=== PATIENT | female | born 1930 | race Caucasian/White ===

== ENCOUNTER 2016-10-06 10:41 | Emergency (ER) | payer MEDICARE, OTHER ==
[2016-10-06 10:44] VITALS: BP 203/91; PULSE 95; RESP 22; TEMP 98.4; O2SAT 100
--- NOTE | 2016-10-06 11:15 | PD ---
Physical Exam Time Seen by Provider: 11:14 Narrative 86 y/o female here with lower abdominal pain abdominal pain which started a few days ago. Hx of diverticulosis/diverticulitis, this feels similar. Loose stools, denies fevers/chills, nausea/vomiting. Vital signs reviewed. Seen at triage desk. Awaiting bed placement. Data Data Last Documented VS Vital Signs Date Time Temp Pulse Resp B/P Pulse Ox O2 Delivery O2 Flow Rate FiO2 10/06/16 10:44 98.4 95 22 203/91 100 Room Air [facility] Medical Record Reviewed: Yes Supervised Visit with AUUGSTINE: No Alessandro Hawkins Oct 06, 2016 11:15
[2016-10-06 11:42] LABS: AUTOMATED NEUTROPHIL # 5.6 TH/MM3 (1.8-7.7); BASOPHIL % 0.4 % (0.0-2.0); EOSINOPHIL % 0.1 % (0.0-4.0); HEMATOCRIT 42.2 % (35.0-46.0); HEMO FLAGS DIFF FINAL; LYMPH % 17.3 % (9.0-44.0); LYMPHOCYTE # 1.4 TH/MM3 (1.0-4.8); MEAN CELL VOLUME 83.9 FL (80.0-100.0); MEAN CORPUSCULAR HEMOGLOBIN 28.7 PG (27.0-34.0); MEAN CORPUSCULAR HGB CONC 34.2 % (32.0-36.0); MONO % 11.2 % (0.0-8.0); PLATELET COUNT 122 TH/MM3 (150-450); RED BLOOD COUNT 5.03 MIL/MM3 (4.00-5.30); RED CELL DISTRIBUTION WIDTH 14.6 % (11.6-17.2); WHITE BLOOD COUNT 7.8 TH/MM3 (4.0-11.0)
[2016-10-06 11:47] LABS: BACTERIA, URINE MANY /hpf; BLOOD, URINE NEG (NEG); COMMENT (UR) CULTURE INDICATED; CULTURE IF INDICATED CULTURE INDICATED; GLUCOSE,URINE NEG (NEG); KETONE, URINE NEG (NEG); NITRITE,URINE NEG (NEG); PH, URINE 5.5 (5.0-8.5); RENAL EPITHELIAL CELLS 1 /hpf; SQUAMOUS EPITHELIAL CELL URINE <1 /hpf (0-5); URINE COLOR YELLOW (YELLW/STRAW)
[2016-10-06 12:04] LABS: ALT (GPT) 20 U/L (10-53); ANION GAP 10 MEQ/L (5-15); AST (GOT) 10 U/L (15-37); BICARBONATE 25.4 MEQ/L (21.0-32.0); BLOOD UREA NITROGEN 16 MG/DL (7-18); CHLORIDE 108 MEQ/L (98-107); GLOMERULAR FILTRATION RATE 57 ML/MIN (>89); POTASSIUM 3.5 MEQ/L (3.5-5.1); SODIUM (NA) 143 MEQ/L (136-145)
[2016-10-06 12:06] LABS: ALKALINE PHOSPHATASE 64 U/L (45-117); TOTAL BILIRUBIN ADULT 0.4 MG/DL (0.2-1.0)
[2016-10-06 13:02] VITALS: BP 226/103; PULSE 89; O2SAT 95
--- NOTE | 2016-10-06 13:05 | PD ---
HPI Chief Complaint: GI Complaint Time Seen by Provider: 12:56 Travel History International Travel<30 days: No Contact w/Intl Traveler<30days: No History of Present Illness HPI 86-year-old female complains of left low quadrant abdominal pain. Patient states the pain started 3 days ago. Patient states the pain is sharp pain constant pain localized to left lower quadrant of the abdomen. Patient denies any pain radiation. Patient states that she has intermittent loose stool since then. Patient denies any nausea vomiting. Patient denies any fever chills. Patient has history of diverticulitis in the past. Patient states that was at times the pain came and resolved without any intervention. Patient denies any dysuria or frequency. Patient denies any vaginal discharge or bleeding. Patient status post hysterectomy in the past. On a scale of 1-10 the pain is a 2. PFSH Past Medical History High Cholesterol: Yes Gastrointestinal Disorders: Yes (diverticulitis) Hypertension: Yes Tetanus Vaccination: Unknown Influenza Vaccination: No ?: Not Past Surgical History Eye Surgery: Yes (right eye filter placed) Hysterectomy: Yes (complete) Social History Alcohol Use: No Tobacco Use: No Substance Use: No Allergies-Medications (Allergen,Severity, Reaction): Coded Allergies: No Known Allergies (Verified , 10/06/16) Reported Meds & Prescriptions Reported Meds & Active Scripts Active Ultram (Tramadol HCl) 50 Mg Tab 50 Mg PO Q6H PRN Flagyl (Metronidazole) 500 Mg Tab 500 Mg PO TID Cipro (Ciprofloxacin HCl) 500 Mg Tab 500 Mg PO BID Review of Systems General / Constitutional: No: Fever Eyes: No: Visual changes HENT: No: Headaches Cardiovascular: No: Chest Pain or Discomfort Respiratory: No: Shortness of Breath Gastrointestinal: Positive: Abdominal Pain Genitourinary: No: Dysuria Musculoskeletal: No: Pain Skin: No Rash Neurologic: No: Weakness Psychiatric: No: Depression Endocrine: No: Polydipsia Hematologic/Lymphatic: No: Easy Bruising Physical Exam Narrative GENERAL: Well-nourished, well-developed patient. SKIN: Focused skin assessment warm/dry. HEAD: Normocephalic. EYES: No scleral icterus. No injection or drainage. NECK: Supple, trachea midline. No JVD or lymphadenopathy. CARDIOVASCULAR: Regular rate and rhythm without murmurs, gallops, or rubs. RESPIRATORY: Breath sounds equal bilaterally. No accessory muscle use. GASTROINTESTINAL: Abdomen soft, nondistended. Patient has moderate tenderness on palpation the left low quadrant of the abdomen. No rebound tenderness. No mass. MUSCULOSKELETAL: No cyanosis, or edema. BACK: Nontender without obvious deformity. No CVA tenderness. Neurologic exam normal. Data Data Last Documented VS Vital Signs Date Time Temp Pulse Resp B/P Pulse Ox O2 Delivery O2 Flow Rate FiO2 10/06/16 13:02 89 226/103 95 Room Air 10/06/16 10:44 98.4 22 Orders Complete Blood Count With Diff (10/06/16 11:15) Comprehensive Metabolic Panel (10/06/16 11:15) Lipase (10/06/16 11:15) Urinalysis - C+S If Indicated (10/06/16 11:15) Urine Culture (10/06/16 11:30) Ct Abd/Pel W Iv Contrast(Rout) (10/06/16 13:02) Levofloxacin 750 Mg Premix Inj (Levaquin (10/06/16 13:15) Iohexol 350 Inj (Omnipaque 350 Inj) (10/06/16 13:32) Labs Laboratory Tests Test 10/06/16 10/06/16 11:25 11:30 White Blood Count 7.8 TH/MM3 Red Blood Count 5.03 MIL/MM3 Hemoglobin 14.5 GM/DL Hematocrit 42.2 % Mean Corpuscular Volume 83.9 FL Mean Corpuscular Hemoglobin 28.7 PG Mean Corpuscular Hemoglobin 34.2 % Concent Red Cell Distribution Width 14.6 % Platelet Count 122 TH/MM3 Mean Platelet Volume 10.1 FL Neutrophils (%) (Auto) 71.0 % Lymphocytes (%) (Auto) 17.3 % Monocytes (%) (Auto) 11.2 % Eosinophils (%) (Auto) 0.1 % Basophils (%) (Auto) 0.4 % Neutrophils # (Auto) 5.6 TH/MM3 Lymphocytes # (Auto) 1.4 TH/MM3 Monocytes # (Auto) 0.9 TH/MM3 Eosinophils # (Auto) 0.0 TH/MM3 Basophils # (Auto) 0.0 TH/MM3 CBC Comment DIFF FINAL Differential Comment Sodium Level 143 MEQ/L Potassium Level 3.5 MEQ/L Chloride Level 108 MEQ/L Carbon Dioxide Level 25.4 MEQ/L Anion Gap 10 MEQ/L Blood Urea Nitrogen 16 MG/DL Creatinine 0.93 MG/DL Estimat Glomerular Filtration 57 ML/MIN Rate Random Glucose 161 MG/DL Calcium Level 8.9 MG/DL Total Bilirubin 0.4 MG/DL Aspartate Amino Transf 10 U/L (AST/SGOT) Alanine Aminotransferase 20 U/L (ALT/SGPT) Alkaline Phosphatase 64 U/L Total Protein 6.9 GM/DL Albumin 3.6 GM/DL Lipase 118 U/L Urine Color YELLOW Urine Turbidity HAZY Urine pH 5.5 Urine Specific [place] 1.020 Urine Protein TRACE mg/dL Urine Glucose (UA) NEG mg/dL Urine Ketones NEG mg/dL Urine Occult Blood NEG Urine Nitrite NEG Urine Bilirubin NEG Urine Urobilinogen LESS THAN 2.0 MG/DL Urine Leukocyte Esterase LARGE Urine RBC 4 /hpf Urine WBC 69 /hpf Urine Squamous Epithelial <1 /hpf Cells Urine Renal Epithelial Cells 1 /hpf Urine Bacteria MANY /hpf Microscopic Urinalysis Comment CULTURE INDICATED MDM Medical Decision Making Medical Screen Exam Complete: Yes Emergency Medical Condition: Yes Interpretation(s) 1305 PM. CBC within normal limit. Platelet 122. CMP within normal limit. UA positive for WBC and bacteria. 1418 p.m. Last Impressions Abdomen/Pelvis CT 10/06/16 1302 Signed Impressions: Service Date/Time: September 13:32 - CONCLUSION: 1. Focal area of inflamed, thickened distal sigmoid colon most consistent with acute diverticulitis. No drainable abscess or free air identified. Followup to ensure there is no underlying mass would be warranted. Beto Solitario MD Differential Diagnosis Differential diagnosis including diverticulitis, UTI, pyelonephritis, nephrolithiasis. Narrative Course 86-year-old female with left lower quadrant abdominal pain. History of diverticulitis in the past. Levaquin 750 mg IV given. Diagnosis Primary Impression: Acute diverticulitis Patient Instructions: General Instructions Med/Other Pt SpecificInfo: Prescription(s) given Scripts Tramadol (Ultram)50 Mg Tab50 Mg PO Q6H PRN (PAIN) #20 TAB Ref 0 Prov:Dev Okeefe MD 10/06/16 Metronidazole (Flagyl)500 Mg [id number] Mg PO TID #30 TAB Ref 0 Prov:Dev Okeefe MD 10/06/16 Ciprofloxacin (Cipro)500 Mg [id number] Mg PO BID #20 TAB Ref 0 Prov:Dev Okeefe MD 10/06/16 Disposition: 01 DISCHARGE HOME Condition: Stable Dev Okeefe MD Oct 06, 2016 13:05
[2016-10-06] MEDS ORDERED: LEVOFLOXACIN 750 MG PREMIX INJ 150 ML IV ONE (13:15)
[2016-10-06] MEDS ORDERED: IOHEXOL 350 MG/ML 10 ML VIAL (for RAD DIAG) IV ONE (13:32)
--- NOTE | 2016-10-06 14:02 | RADRPT ---
EXAM DATE/TIME: 10/06/2016 13:32 [place] COMPARISON: No previous studies available for comparison. INDICATIONS : Lower abdominal pain and diarrhea since Monday. IV CONTRAST: 93 cc Omnipaque 350 (iohexol) IV ORAL CONTRAST: No oral contrast ingested. RADIATION DOSE: 15.93 CTDIvol (mGy) MEDICAL HISTORY : Hypertension. Diverticulitis. SURGICAL HISTORY : Hysterectomy. ENCOUNTER: Initial ACUITY: 1 day PAIN SCALE: 3/10 LOCATION: Bilateral lower quadrant TECHNIQUE: Volumetric scanning of the abdomen and pelvis was performed. Using automated exposure control and ad justment of the mA and/or kV according to patient size, radiation dose was kept as low as reasonably achievable to obtain optimal diagnostic quality images. DICOM format image data is available electro nically for review and comparison. FINDINGS: The limited portion of the lung base visualized is clear. Examination of the liver demonstrates 2 low attenuation lesions. Both appear to be simple cysts. The largest is seen inferiorly in the left lobe and measures 1.3 cm. The spleen, pancreas, adrenal glands and kidneys are intact. There is no free intraperitoneal air. No free intraperitoneal fluid is identified. There is no retrop eritoneal lymphadenopathy. The aorta is normal in caliber. The visualized loops of small and large bowel are unremarkable. There is no free air or free fluid. Imaging through the pelvis demonstrates a focal area of thickened, inflamed sigmoid colon suggesting diverticulitis. Followup to ensure there is no underlying malignancy would be warranted. There is no focal drainable abscess. The visualized bony structures demonstrate degenerative changes but are otherwise intact. CONCLUSION: 1. Focal area of inflamed, thickened distal sigmoid colon most consistent with acute diverticulitis. No drainable abscess or free air identified. Followup to ensure there is no underlying mass would be warranted. Beto Solitario MD on October 06, 2016 at 13:57 Board Certified Radiologist. This report was verified electronically.
[2016-10-06] MEDS ORDERED: CIPR-9 PO (14:24)
[2016-10-06] MEDS ORDERED: METR-1 PO (14:24)
[2016-10-06] MEDS ORDERED: ULTR50TA5 PO (14:24)
[2016-10-10] MEDS ORDERED: AMLO10TA2 PO (10:47)
[2016-10-10] MEDS ORDERED: LISI-515 PO (10:47)
== END 2016-10-06 15:45 | disposition home or self-care (01) ==
LOC: NEPD 10:41
DX: K57.92 Diverticulitis of intestine, part unspecified, without perforation or abscess without bleeding (principal); E78.00 Pure hypercholesterolemia, unspecified; I10 Essential (primary) hypertension; Z79.899 Other long term (current) drug therapy
CPT/HCPCS: 74177; 80053; 81001; 83690; 85025; 87077; 87086; 87186; 96365; 96366; 99285; J1956; Q9967